=== PATIENT | female | born 1930 | race Caucasian/White ===

== ENCOUNTER 2017-03-23 09:41 | Day surgery (SDC) | payer OTHER, SELFPAY ==
[~2017-03-23 09:41] MED LIST: ACET325; ASCO500 PO; ASPI325; Advil200 M1; Aspir 8181 MG PO; CHOL10002; CLOP75 PO; CONESTTC VAG; CYAN500 PO; CYANOCOBAL-LEV1 EACH PO; ERGO400 PO; FURO40 PO; HYDR1TAB94 PO; Humulin 70-30 V10 ML INJ; INSUL100I; ISOMON30; Isosorbide Mono30 MG PO; LOSA50; METO25 PO; Magnesium200 MG; Metformin HCl500 MG PO; Multiple Vitam1 EAC1 PO; NITR.6SL; Nitrostat0.4 MG SL; OMEP20ER; OXYC1TAB11 PO; POTCHL10ER PO; PRAV20; Pantoprazole So40 MG PO; Pravachol80 MG PO; RANO500T PO; Ranexa1000 MG; TOCO400 PO; TRAM50; VICODIN 5-3001 EACH PO; Vesicare10 MG PO; Vitamin C1000 M1 PO
[2017-03-23 11:13] LABS: Performing Lab VERACYTE; Test Name FNA
[2017-03-26 08:48] LABS: Result SEE PATHOTH RESULTS
== END 2017-03-23 22:45 | disposition home or self-care (01) ==
LOC: US 09:41
PROVIDERS: Family Medicine
PROC: 0GBH3ZX Excision of Right Thyroid Gland Lobe, Percutaneous Approach, Diagnostic (ICD-10-PCS; principal; 2017-03-23)
DX: E04.1 Nontoxic single thyroid nodule (principal)
CPT/HCPCS: 10022; 76942

== ENCOUNTER 2018-03-14 11:41 | Emergency (ER) | payer OTHER, SELFPAY ==
[~2018-03-14] VITALS: Ht 157.5 cm; Wt 90.7 kg
[~2018-03-14 11:41] MED LIST changes: -Isosorbide Mono30 MG PO; +Isosorbide Mono60 MG PO; +METF500C PO; -Metformin HCl500 MG PO; -Vitamin C1000 M1 PO
[2018-03-14 12:29] LABS: BASOPHILS ABSOLUTE AUTO 0.06 K/mm3 (0.00-0.23); BASOPHILS PERCENT AUTO 1 % (0-2); EOSINOPHILS ABSOLUTE AUTO 0.08 K/mm3 (0.00-0.68); EOSINOPHILS PERCENT AUTO 1 % (0-6); Hematocrit 31.6 % (33.0-51.0); Hemoglobin 10.3 g/dL (11.5-16.0); IMMATURE GRAN ABSOLUTE AUTO 0.03 K/mm3 (0.00-0.10); IMMATURE GRAN PERCENT AUTO 0 % (0-1); LYMPHOCYTES ABSOLUTE AUTO 1.27 K/mm3 (0.84-5.20); LYMPHOCYTES PERCENT AUTO 16 % (21-46); MONOCYTES ABSOLUTE AUTO 0.75 K/mm3 (0.16-1.47); MONOCYTES PERCENT AUTO 10 % (4-13); Mean Corpuscular HGB 30.3 pg (26.0-34.0); Mean Corpuscular HGB Conc 32.6 g/dL (31.5-36.5); Mean Corpuscular Volume 93 fL (80-100); Mean Platelet Volume 9.3 fL (9.1-12.4); NEUTROPHILS ABSOLUTE AUTO 5.61 K/mm3 (1.96-9.15); NEUTROPHILS PERCENT AUTO 72 % (41-73); Platelet Count 205 K/mm3 (150-400); RDW Coefficient Variation 13.6 % (11.7-14.2); RDW Standard Deviation 46.2 fL (35.1-46.3)
[2018-03-14 12:41] LABS: International Normalized Ratio 1.06; Prothrombin Time Results 10.9 Sec (9.7-11.5)
[2018-03-14 12:52] LABS: Albumin, Blood 3.4 g/dL (3.4-5.0); Bilirubin, Total 0.9 mg/dL (0.1-1.0); Bun/Creatinine Ratio 24.8 (12.0-20.0); Calcium, Blood 8.7 mg/dL (8.5-10.1); Creatinine, Blood 1.09 mg/dL (0.40-1.00); Globulin, Blood 3.3 g/dL (2.2-4.0); Potassium, Blood 4.2 mmol/L (3.5-5.5); Total Protein, Blood 6.7 g/dL (6.4-8.2)
[2018-03-14] MEDS ORDERED: Norco 10-325 T1 EACH PO (13:29)
== END 2018-03-14 13:39 | disposition home or self-care (01) ==
LOC: ER 11:41
PROVIDERS: Physician Assistant
DX: S51.811A Laceration without foreign body of right forearm, initial encounter (principal); S00.83XA Contusion of other part of head, initial encounter; S00.12XA Contusion of left eyelid and periocular area, initial encounter; S60.222A Contusion of left hand, initial encounter; W22.8XXA Striking against or struck by other objects, initial encounter; E11.9 Type 2 diabetes mellitus without complications; I10 Essential (primary) hypertension; I25.10 Atherosclerotic heart disease of native coronary artery without angina pectoris; Z95.1 Presence of aortocoronary bypass graft; Z88.0 Allergy status to penicillin; Z88.8 Allergy status to other drugs, medicaments and biological substances; Z88.1 Allergy status to other antibiotic agents; Z79.899 Other long term (current) drug therapy; Z79.82 Long term (current) use of aspirin; Z79.4 Long term (current) use of insulin
CPT/HCPCS: 36415; 70450; 70486; 71046; 73130; 80053; 83880; 84484; 85025; 85610; 85730; 93005; 93010; 99284-25

== ENCOUNTER 2018-05-05 15:16 | Inpatient (IN) | payer OTHER ==
[~2018-05-05] VITALS: Ht 157.5 cm; Wt 91.7 kg
--- NOTE | 2018-05-05 05:00 | NUR ---
PT ADMITTED FROM ED AT APPROX 2220 FOR C/O SOB, DIZZINESS AND DYSPNEA. VS WNL. A&O X4. ONE SBA W/FWW TO BATHROOM. REPORTS SOB UPON EXERTION. C/O SOME CHEST PAIN. VOIDING WELL. TELE IN PLACE. PT A-FIB WITH BUNDLE BRANCH BLOCK PER CIRCULAR STUFFER. PULSE OX ON; USING CPAP T/O NIGHT.
[~2018-05-05 15:16] MED LIST changes: +Norco 10-325 T1 EACH PO
[2018-05-05 16:33] LABS: Source, Urine Clean Catch
[2018-05-05 16:40] LABS: Bilirubin, Urine Neg (Neg); Blood, Urine Neg (Neg); Glucose Qualitative, Urine Neg (Neg); Ketones, Urine Neg (Neg); Leukocyte Esterase, Urine Neg (Neg); Nitrite, Urine Neg (Neg); Protein, Urine Neg (Neg); Urobilinogen, Urine NORM (Normal)
[2018-05-05 16:47] LABS: Appearance, Urine Clear (Clear); Color, Urine Yellow (P-Yellow)
[2018-05-05 16:50] LABS: BASOPHILS ABSOLUTE AUTO 0.08 K/mm3 (0.00-0.23); BASOPHILS PERCENT AUTO 1 % (0-2); EOSINOPHILS ABSOLUTE AUTO 0.25 K/mm3 (0.00-0.68); EOSINOPHILS PERCENT AUTO 3 % (0-6); Hematocrit 32.5 % (33.0-51.0); Hemoglobin 10.3 g/dL (11.5-16.0); IMMATURE GRAN ABSOLUTE AUTO 0.04 K/mm3 (0.00-0.10); IMMATURE GRAN PERCENT AUTO 1 % (0-1); LYMPHOCYTES ABSOLUTE AUTO 0.87 K/mm3 (0.84-5.20); LYMPHOCYTES PERCENT AUTO 12 % (21-46); MONOCYTES ABSOLUTE AUTO 0.68 K/mm3 (0.16-1.47); MONOCYTES PERCENT AUTO 9 % (4-13); Mean Corpuscular HGB 29.2 pg (26.0-34.0); Mean Corpuscular HGB Conc 31.7 g/dL (31.5-36.5); Mean Corpuscular Volume 92 fL (80-100); Mean Platelet Volume 8.6 fL (9.1-12.4); NEUTROPHILS PERCENT AUTO 74 % (41-73); Platelet Count 368 K/mm3 (150-400); RDW Coefficient Variation 14.5 % (11.7-14.2); Red Blood Cell Count 3.53 M/mm3 (3.80-5.20); White Blood Cell Count 7.42 K/mm3 (4.00-11.30)
[2018-05-05 17:19] LABS: Albumin, Blood 3.2 g/dL (3.4-5.0); Albumin/Globulin Ratio 0.8 (0.8-1.8); Bun/Creatinine Ratio 27.9 (12.0-20.0); Creatinine, Blood 1.22 mg/dL (0.40-1.00); Globulin, Blood 3.9 g/dL (2.2-4.0); Total Protein, Blood 7.1 g/dL (6.4-8.2); Troponin I 0.071 ng/mL (0.000-0.040)
[2018-05-05] MEDS ORDERED: TOUJEO MAX300 UNIT/1 SC (18:50)
[2018-05-05] MEDS ORDERED: Amlodipine Bes2.5 MG PO (20:15)
[2018-05-05] MEDS ORDERED: OXYB5ER PO (20:16)
[2018-05-05] MEDS ORDERED: METF500C PO (21:50)
[2018-05-05] MEDS ORDERED: INSU100I6 SC (21:55)
[2018-05-05] MEDS ORDERED: LOSA25 PO (21:57)
[2018-05-05] MEDS ORDERED: DULO30 PO (21:57)
[2018-05-05] MEDS ORDERED: HYDR1TAB94 PO (22:30)
[2018-05-06 03:28] LABS: Hematocrit 33.6 % (33.0-51.0); Hemoglobin 10.5 g/dL (11.5-16.0); Mean Corpuscular HGB 29.1 pg (26.0-34.0); Mean Corpuscular HGB Conc 31.3 g/dL (31.5-36.5); Mean Corpuscular Volume 93 fL (80-100); Mean Platelet Volume 8.9 fL (9.1-12.4); Platelet Count 358 K/mm3 (150-400); RDW Coefficient Variation 14.4 % (11.7-14.2); RDW Standard Deviation 49.2 fL (35.1-46.3); Red Blood Cell Count 3.61 M/mm3 (3.80-5.20); White Blood Cell Count 8.88 K/mm3 (4.00-11.30)
[2018-05-06 03:51] LABS: Bun/Creatinine Ratio 26.8 (12.0-20.0); Calcium, Blood 9.1 mg/dL (8.5-10.1); Creatinine, Blood 1.42 mg/dL (0.40-1.00); Potassium, Blood 4.7 mmol/L (3.5-5.5)
--- NOTE | 2018-05-06 17:54 | NUR ---
SUMMARY PATIENT HAS DENIED PAIN THROUGHOUT SHIFT, SOB WITH MOVING SELF IN BED AND WHEN OOB. BIOX GREATER THAN 90% THROUGHOUT SHIFT. PATIENTS FAMILY AT BEDSIDE MOST OF SHIFT. PATIENT IS AWARE SHE WILL BE NPO AFTER MIDNITE
[2018-05-07 05:13] LABS: BASOPHILS ABSOLUTE AUTO 0.08 K/mm3 (0.00-0.23); BASOPHILS PERCENT AUTO 1 % (0-2); EOSINOPHILS PERCENT AUTO 6 % (0-6); Hematocrit 31.7 % (33.0-51.0); Hemoglobin 10.1 g/dL (11.5-16.0); IMMATURE GRAN ABSOLUTE AUTO 0.05 K/mm3 (0.00-0.10); IMMATURE GRAN PERCENT AUTO 1 % (0-1); LYMPHOCYTES ABSOLUTE AUTO 1.29 K/mm3 (0.84-5.20); LYMPHOCYTES PERCENT AUTO 15 % (21-46); MONOCYTES ABSOLUTE AUTO 0.96 K/mm3 (0.16-1.47); MONOCYTES PERCENT AUTO 11 % (4-13); Mean Corpuscular HGB 29.1 pg (26.0-34.0); Mean Corpuscular HGB Conc 31.9 g/dL (31.5-36.5); Mean Corpuscular Volume 91 fL (80-100); Mean Platelet Volume 8.7 fL (9.1-12.4); NEUTROPHILS ABSOLUTE AUTO 5.52 K/mm3 (1.96-9.15); NEUTROPHILS PERCENT AUTO 66 % (41-73); Platelet Count 308 K/mm3 (150-400); RDW Coefficient Variation 14.5 % (11.7-14.2); RDW Standard Deviation 48.3 fL (35.1-46.3); Red Blood Cell Count 3.47 M/mm3 (3.80-5.20)
[2018-05-07 06:05] LABS: Albumin, Blood 3.1 g/dL (3.4-5.0); Anion Gap 7 mmol/L (6-16); Blood Urea Nitrogen 38 mg/dL (8-24); Bun/Creatinine Ratio 25.2 (12.0-20.0); CO2, Blood 25 mmol/L (21-32); Calcium, Blood 9.1 mg/dL (8.5-10.1); Chloride, Blood 101 mmol/L (98-108); Creatinine, Blood 1.51 mg/dL (0.40-1.00); Glomerular Filtration Rate 35 (60-); Glucose, Blood 126 mg/dL (70-99); Phosphorus, Blood 2.8 mg/dL (2.5-4.9); Potassium, Blood 4.7 mmol/L (3.5-5.5); Sodium, Blood 133 mmol/L (136-145)
--- NOTE | 2018-05-07 07:23 | NUR ---
SUMMARY: ADMIT DAY 2 CP ON HOSPITALIST SERVICE. NO ACUTE CHANGES THIS SHIFT. PT REPORTS SOB IMPROVED SINCE ADMIT, VSS, AFEBRILE. CPAP WHILE ASLEEP. MILD DIZZINESS WITH BRP; 1 PERSON ASSIST. NPO AFTER MIDNIGHT IN ANTICIPATION OF DR. SAWYER CONSULT THIS DAY.
[2018-05-07 12:55] LABS: BASOPHILS ABSOLUTE AUTO 0.08 K/mm3 (0.00-0.23); BASOPHILS PERCENT AUTO 1 % (0-2); EOSINOPHILS ABSOLUTE AUTO 0.43 K/mm3 (0.00-0.68); EOSINOPHILS PERCENT AUTO 5 % (0-6); Hematocrit 34.8 % (33.0-51.0); IMMATURE GRAN ABSOLUTE AUTO 0.05 K/mm3 (0.00-0.10); IMMATURE GRAN PERCENT AUTO 1 % (0-1); LYMPHOCYTES ABSOLUTE AUTO 1.41 K/mm3 (0.84-5.20); LYMPHOCYTES PERCENT AUTO 16 % (21-46); MONOCYTES ABSOLUTE AUTO 0.76 K/mm3 (0.16-1.47); MONOCYTES PERCENT AUTO 9 % (4-13); Mean Corpuscular HGB 28.6 pg (26.0-34.0); Mean Corpuscular HGB Conc 31.6 g/dL (31.5-36.5); Mean Corpuscular Volume 90 fL (80-100); Mean Platelet Volume 8.6 fL (9.1-12.4); NEUTROPHILS ABSOLUTE AUTO 5.91 K/mm3 (1.96-9.15); NEUTROPHILS PERCENT AUTO 68 % (41-73); Platelet Count 377 K/mm3 (150-400); RDW Coefficient Variation 14.6 % (11.7-14.2); RDW Standard Deviation 47.9 fL (35.1-46.3); Red Blood Cell Count 3.85 M/mm3 (3.80-5.20); White Blood Cell Count 8.64 K/mm3 (4.00-11.30)
[2018-05-07 13:13] LABS: Bun/Creatinine Ratio 26.7 (12.0-20.0); Calcium, Blood 9.3 mg/dL (8.5-10.1); Creatinine, Blood 1.31 mg/dL (0.40-1.00); Potassium, Blood 4.2 mmol/L (3.5-5.5)
[2018-05-07 13:26] LABS: International Normalized Ratio 1.08; Prothrombin Time Results 11.4 Sec (9.7-11.5)
--- NOTE | 2018-05-07 17:19 | NUR ---
PT HAS BEEN AOX4 AND COOPERATIVE OF ALL CARE. PT STATES SHE IS MORE LIGHT HEADED WHEN SITTING UP IN BED, PT DID WELL TRANSFERING A ONE PERSON TO RESTROOM. PT PLEASANT AND CALLS APPROPRIATELY. WILL CONTINUE TO MONITOR.
--- NOTE | 2018-05-08 06:38 | NUR ---
SHIFT SUMMARY PT SCHEDULED FOR ANGIOGRAM THIS MORNING, UNKNOWN TIME. NPO SINCE MIDNIGHT IN PREP, FLUIDS STARTED AT 0630. PT IS A&O, ABLE TO MAKE NEEDS KNOWN. WORE HER CPAP AT HS. SHE DENIED SOB AT REST, PALPITATIONS, OR CP OVERNIGHT. TELE WAS A-FIB WITH A BBB, OCCASIONALLY PACED IN THE 60S-70S AT TIME OF ASSESSMENT. PT RECEIVED COVERAGE AT HS FOR CB[facility]. WILL CTM UNTIL PASS TO NEXT SHIFT.
--- NOTE | 2018-05-08 07:49 | NUR ---
TRANSFERED CARE TO [facility] @ 9219. VSS. [facility] DID NOT REQUIRE INSULIN COVERAGE. SHE HAS BEEN NPO SINCE [place]. MORNING ASSESSMENT NOT COMPLETED PRIOR TO TRANSFER OF CARE. [facility] RN AWARE.
--- NOTE | 2018-05-08 10:22 | NUR ---
The pt was received from the heart center, sleepy but responsive to verbal stimuli. Drowsy and giving occasionally confused answers, but some normal conversation as well. Son and daughter at the bedside, noted that the pt "isn't quite herself yet". She was given sips of orange juice, blood sugar stable at this time. vital signs stable. Right radial site and right groin site were checked upon arrival with heart staff genetic counselorVELASQUEZ De Paz and at 15 minute intervals since then. No evidence of active bleeding, hematoma, swelling, or pain. Right radial site has TR band and white immobilizer board in place. Distal pulses were checked of hands and feet, and noted palpable. Color, warmth, and capillary refill of toes and fingers are WNL. Right groin site has white square dressing held in place with a large transparent dressing. Palpation of the abdomen and groin around the site without evidence of bleeding or hematoma. Hypoxia on room air noted upon arrival; oxgyen was applied at 2 l/min. Contiuous oxymetry is in place and hypoxia was corrected with the oxygen. The pt is lying flat in bed due to activity restrictions following groin access.
--- NOTE | 2018-05-08 11:04 | NUR ---
No changes to previous assessments of groin and radial access sites. Pt remains awake to verbal stimuli.
--- NOTE | 2018-05-08 12:24 | NUR ---
RIGHT HAND DIGITS ARE COOL TO TOUCH, CAP REFILL IS 4-5 SECONDS. PT DENIES PAIN, NUMBNESS AND TINGLING IN THE HANDS. SPO2 MEASURED ON THE FIRST DIGIT IS 94%. 2 CC AIR SLOWLY REMOVED FROM TR BAND, BUT OOZING NOTED, STOPPED AFTER 1 CC AIR REINSTILLED. WHITE IMMOBLIZER BOARD IS IN PLACE, AND PT IS BEING COMPLIANT WITH NO USE OF THE RIGHT ARM OR HAND. RIGHT GROIN SITE REMAINS UNCHANGED FROM PREVIOUS ASSESSMENTS.
--- NOTE | 2018-05-08 13:22 | NUR ---
1240: FINGERS OF RIGHT HAND ARE PINK, CAP REFILL 3 SECONDS, AND COOL TO TOUCH. SPO2 96% MEASURED ON THE 2ND DIGIT OF THE RIGHT HAND. 1330: 1CC AIR REMOVED FROM THE BAND. FINGERS ARE WARM, PINK, WITH BRISK CAP REFILL. NO BLEEDING, NO BRUISING, NO SWELLING.
--- NOTE | 2018-05-08 14:55 | NUR ---
Right radial site is unchanged; right groin site also stable, no changes noted. 5 cc total of air have been removed from the TR band. White immobilizer board remains in place, and the pt is having no pain/discomfort. HOB elevated 30 degrees. The pt is taking in water and food without difficulty.
--- NOTE | 2018-05-08 17:14 | NUR ---
TR band was removed at 1630, cleansed with chlorohexidine and sterile tegederm dressing applied and the white immobilizer board was replaced. Pt is tired, but has no complaints offered at that time.
--- NOTE | 2018-05-08 18:55 | NUR ---
1740 Noted oozing from the right wrist site. Gentle pressure and elevation of the extremity, and it subsided. Noted small marble directly under the 4 mm slit of access site. Doug Gamboa verified the site and assessed the arm with me. Gauze and coban was applied for 1 hour, after which time the oozing had stopped and it was removed. At 1900 Bedside report to Harry Choudhury and verification of both the groin and radial sites was done, and there has been no bleeding or change to the right radial site assessment. The pt states that she is comfortable.
[2018-05-09 04:03] LABS: Potassium, Blood 4.9 mmol/L (3.5-5.5)
[2018-05-09 04:04] LABS: Bun/Creatinine Ratio 28.9 (12.0-20.0); Creatinine, Blood 1.35 mg/dL (0.40-1.00)
[2018-05-09 04:05] LABS: Calcium, Blood 8.9 mg/dL (8.5-10.1)
--- NOTE | 2018-05-09 06:36 | NUR ---
SHIFT SUMMARY PATIENT PLEASENT AND COOPERATIVE THROUGHOUT THE NIGHT. PATIENT UP TO THE BSC SEVERAL TIMES. PATIENT'S RIGHT WRIST ANGIO SITE CONTINUES TO HAVE A SLIGHT LUMP AT THE INSERTION SITE BUT NO FURTHER SIGNS OF BLEEDING OR HEMATOMA FORMATION. PATIENT'S RIGHT GROIN ACCESS SITE ALSO HAS NO SIGNS OF BLEEDING OR HEMATOMA FORMATION. PATIENT APPEARED TO SLEEP WELL THROUGHOUT THE NIGHT. CONTINUOUS BIOX IN PLACE. PATIENT USED HER CPAP THROUGHOUT THE NIGHT. VITAL SIGNS CHARTED. WILL CONTINUE TO MONITOR PATIENT AND REPORT TO ONCOMING RN.
--- NOTE | 2018-05-09 08:06 | NUR ---
Assumed Care: Assumed care of pt at approx 0700. VSS. In no apparent sign of distress. Pt is A&Ox4. Calls appropriately and repositions self. Pt is compliant with R femoral and R radial activity restrictions. Pt denies any pain or CP at this time. Denies any acute complaints or events this AM. See shift assessment for detailed assessment. Pt is currently resting in bed with call light within reach. Denies any further questions, complaints or requests at this time. Will continue to monitor.
--- NOTE | 2018-05-09 18:46 | NUR ---
Shift Summary No acute changes since initial shift assessment. VSS. In no apparent sign of distress. Pt is A&Ox4. Calls appropriately and repositions self. Denies any pain at this time. No acute events on tele. Attempted to titrate O2 down, but SpO2 did not maintain >92% unless pt was on 2L O2 NC. Plan is to keep pt until follow-up is possible for possible PE per Dr. Mcnulty. Per pt family, pt/pt family was told by Dr. Chen that pt needs to follow-up for possible PE d/t angiogram results. Pt has not demonstrated any acute respiratory distress this shift. Pt is currenlty resting in bed with call light within reach. Denies any further questions, complaints or requests at this time. Will continue to montior until report is given to venkatesh ENG.
[2018-05-10 04:43] LABS: Anion Gap 8 mmol/L (6-16); Blood Urea Nitrogen 41 mg/dL (8-24); Bun/Creatinine Ratio 30.4 (12.0-20.0); CO2, Blood 25 mmol/L (21-32); Chloride, Blood 104 mmol/L (98-108); Creatinine, Blood 1.35 mg/dL (0.40-1.00); Glomerular Filtration Rate 37 (60-); Glucose, Blood 76 mg/dL (70-99); Phosphorus, Blood 2.7 mg/dL (2.5-4.9); Potassium, Blood 4.9 mmol/L (3.5-5.5); Sodium, Blood 137 mmol/L (136-145)
--- NOTE | 2018-05-10 05:54 | NUR ---
SHIFT SUMMARY PT ALERT AND ORIENTED. VS STABLE. PT RESTED MOST OF SHIFT ON CPAP WITH 2L BLEED IN. 02 SATS REMAINED ABOVE 92%. PT COMPLAINED OF PAIN IN HER RIGHT SHOULDER THAT WAS RELIEVED WITH MEDICATION ADMINISTRATION. PT WAS ABLE TO AMBULATE TO [facility] NEEDED TO VOID. RIGHT RADIAL SITE AND RIGHT GROIN SITE UNCHANGED THIS SHIFT. NO OTHER CHANGES SINCE INITIAL ASSESSMENT. WILL CONTINUE TO MONITOR AND REPORT TO ONCOMING RN. CALL LIGHT IN REACH.
--- NOTE | 2018-05-10 12:08 | NUR ---
1100 Pt states that since she has been back in bed after toileting about an hour ago she has had a mild heaviness and ache in her right arm, upper part. She is not sure if she has had this kind of pain before, but states definitely not this admission. Noted that spo2 is 88% on room air. Denies any other pain, dyspnea at rest or discomfort. Arm was assessed: No swelling except for resolving area medial right elbow from IV infiltration just following angiogram. No discoloration of skin, and temperature is warm, and cap refill noted 3 sec. She has her normal mobility of the right arm.Right radial access site is WNL. Oxygen applied. at 2 l/min and spo2 improved to 94%.
--- NOTE | 2018-05-10 12:28 | NUR ---
SPO2 IS 98% on 2 l/min of oxygen. Pt toileted in bathroom, now sitting in a chair and states that her right arm discomfort is resolved.
--- NOTE | 2018-05-10 18:26 | NUR ---
No further complaints of pain. The pt has been ambulatory to the bathroom while wearing oxgyen asymptomatically. Getting OOB also for meals to the chair, other andrew she tends to lie in bed and nap or watch TV. Family at the bedside.
[2018-05-11 04:22] LABS: Anion Gap 6 mmol/L (6-16); Blood Urea Nitrogen 39 mg/dL (8-24); Bun/Creatinine Ratio 29.3 (12.0-20.0); CO2, Blood 26 mmol/L (21-32); Calcium, Blood 8.8 mg/dL (8.5-10.1); Chloride, Blood 102 mmol/L (98-108); Creatinine, Blood 1.33 mg/dL (0.40-1.00); Glomerular Filtration Rate 40 (60-); Glucose, Blood 88 mg/dL (70-99); Phosphorus, Blood 2.7 mg/dL (2.5-4.9); Potassium, Blood 4.7 mmol/L (3.5-5.5); Sodium, Blood 134 mmol/L (136-145)
--- NOTE | 2018-05-11 05:54 | NUR ---
SHIFT SUMMARY PT ALERT AND ORIENTED. VS STABLE. 02 SATS HAVE REMAINED ABOVE 90% ON CPAP WITH 2L BLEED IN. PT USES 2L O2 NC WHILE AWAKE. PT DENIES ANY PAIN THIS SHIFT. PT ABLE TO AMBULATE TO BSC. NO CHANGES SINCE INITIAL ASSESSMENT. WILL CONTINUE TO MONITOR AND REPORT TO ONCOMING RN. CALL LIGHT IN REACH.
[2018-05-11] MEDS ORDERED: Humalog100 UNIT/1 SC (13:23)
[2018-05-11] MEDS ORDERED: Lopressor 50 mg50 MG PO (13:31)
[2018-05-11] MEDS ORDERED: Medi-Meclizine25 MG PO (13:35)
[2018-05-11] MEDS ORDERED: ERGO400 PO (13:36)
[2018-05-11] MEDS ORDERED: INSU100I6 SC (16:49)
[2018-05-11] MEDS ORDERED: NAC600 MG PO (16:57)
--- NOTE | 2018-05-11 19:33 | NUR ---
SHIFT SUMMARY AND DISCHARGE Assumed care of pt at 0700. Report received from Iesha ENG. Pt on 2 LPM NC at beginning of shift. Pt's daughter at bedside for majority of shift. This RN accompanied Dr Mcnulty into room as there were concerns about family behavior interfering with patient care yesterday. Pt titrated to room air with Dr Mcnulty in room. Pt tolerated this well. This RN and Dr Mcnulty spoke to pt and her daughter about risk to benefit regarding performing a chest CT to rule out a pulmonary embolism. Pt and family state that Dr Huffman discussed pt having a chest CT, however this is not reflected in the pt's chart. Risks stated included potential decline of kidney function and increase in fluid overload if fluids were administered to help with contrast clearance. Dr Mcnulty stated low suspicion that pt has a pulmonary embolism. Pt's daughter and patient agreed to address the chest CT when the pt visits Dr Huffman as an outpatient. The daughter added "Let's see how the home oxygen evaluation goes." This RN called Dr Mcnulty to notify her that the home O2 evaluation was in the pt's chart. Dr Mcnulty requested child protective services social worker visits the patient prior to discharge. Per account plannerHortencia, the daughter again brought up the chest CT. This RN checked on patient, who was alone in the room at the time. This RN told the patient that she was going home today. The patient stated "okay" and smiled. When this RN went into the room to ask which pharmacy the pt uses, the daughter was in the room. The daughter stated "So she doesn't get to have oxygen?" and "She's going home even though she is a fall risk?" This RN provided education about the home O2 eval that had been performed and fall prevention. The pt's daughter then stated, "Well, we will need an ambulance to get her home. She can't walk into the parking lot to get into my car". This RN stated the patient would be escorted in a wheelchair to a location where she could be picked up. The daughter stated "But I wouldn't be able to get her into her house." When asked how the pt leaves her home, the daughter stated "Well she doesn't leave home when the weather is like this." This RN called Hortencia from discharge planning to discuss transportation options. Hortencia notified this RN that the pt's daughter stated she would not take the pt home and that she wanted the chest CT to be performed. This RN spoke to the pt and daughter, reiterating the risks and benefit of a chest CT, to which the pt and daughter both stated they wanted this done. Call placed to Dr Mcnulty. New orders given. Chest CT done. Results reviewed with Dr Mcnulty. Dr Mcnulty said pt is okay to go home. This RN clairifed that 1800 lasix was to be given. This RN notified pt and family of CT negative for pulmonary embolism. This RN also discussed fluid overload with the pt and family, discussing diuresis and emphasizing a low salt and low fat diet. After discharge education provided, the daughter agreed that the pt going home was in the pt's best interest. The daughter appeared more comfortable with the pt's discharge. This RN notified pt and family that prescriptions should be available for pickup from [facility] pharmacy. This RN also discussed importance of medication complaince, changing positions slowly (moving from laying down to sitting or standing), daily weights, and possibly toileting schedule after taking lasix in the morning to prevent falls related to urinary urgerncy. Pt departed from unit at 1855, accompanied by Jamal HALE.
== END 2018-05-11 19:23 | disposition home health service (06) | DRG 286 ==
LOC: ER 15:16 → SURS 15:17 → ER 21:59 → SURS 21:59 → PCU 05-08 10:11
PROVIDERS: Internal Medicine; Internal Medicine Cardiovascular Disease; Nurse Practitioner Acute Care; Physician Assistant; ADMIT Family Medicine
PROC: B211YZZ Fluoroscopy of Multiple Coronary Arteries using Other Contrast (ICD-10-PCS; principal; 2018-05-08)
DX: I13.0 Hypertensive heart and chronic kidney disease with heart failure and stage 1 through stage 4 chronic kidney disease, or unspecified chronic kidney disease (principal); J96.01 Acute respiratory failure with hypoxia; I50.33 Acute on chronic diastolic (congestive) heart failure; I25.10 Atherosclerotic heart disease of native coronary artery without angina pectoris; N18.3 Chronic kidney disease, stage 3 (moderate); Z66 Do not resuscitate; I48.2 Chronic atrial fibrillation; G47.33 Obstructive sleep apnea (adult) (pediatric); E11.22 Type 2 diabetes mellitus with diabetic chronic kidney disease; R42 Dizziness and giddiness; K21.9 Gastro-esophageal reflux disease without esophagitis; E78.00 Pure hypercholesterolemia, unspecified; E66.9 Obesity, unspecified; Z68.36 Body mass index [BMI] 36.0-36.9, adult; Z95.1 Presence of aortocoronary bypass graft; Z95.2 Presence of prosthetic heart valve; Z88.0 Allergy status to penicillin; Z88.8 Allergy status to other drugs, medicaments and biological substances; Z79.02 Long term (current) use of antithrombotics/antiplatelets; Z79.82 Long term (current) use of aspirin; Z79.4 Long term (current) use of insulin; Z79.899 Other long term (current) drug therapy
CPT/HCPCS: 36415; 71046; 71260; 80048; 80053; 80069; 81003; 82550; 82947; 83735; 83880; 84145; 84484; 85025; 85027; 85610; 93005; 93010; 93455; 94660; 94761; 94762; 96372; 97162; 97165; 97530; 97535; 99152; 99153; 99285-25; C1769; C1894; J1644; J1650; J1940; J2250; J3010; J7030; J7040; Q9967

== ENCOUNTER → 2018-07-06 | Outpatient (CLI) | payer OTHER ==
[~2018-07-06] MED LIST changes: +Amlodipine Bes2.5 MG PO; +DULO30 PO; +Humalog100 UNIT/1 SC; +INSU100I6 SC; +LOSA25 PO; +Lopressor 50 mg50 MG PO; +Medi-Meclizine25 MG PO; +NAC600 MG PO; +OXYB5ER PO; +TOUJEO MAX300 UNIT/1 SC
[2018-07-06 19:24] LABS: Appearance, Urine Clear (Clear); Bilirubin, Urine Neg (Neg); Blood, Urine Neg (Neg); Color, Urine Yellow (P-Yellow); Glucose Qualitative, Urine Neg (Neg); Ketones, Urine Neg (Neg); Leukocyte Esterase, Urine Neg (Neg); Nitrite, Urine Neg (Neg); Protein, Urine Neg (Neg); Urobilinogen, Urine NORM (Normal)
== END | disposition home or self-care (01) ==
LOC: LAB HH 19:19
PROVIDERS: Family Medicine
DX: E11.42 Type 2 diabetes mellitus with diabetic polyneuropathy (principal)
CPT/HCPCS: 81003

== ENCOUNTER 2018-07-21 09:24 | Inpatient (IN) | payer OTHER ==
[~2018-07-21] VITALS: Ht 157.5 cm; Wt 91.7 kg
[2018-07-21 10:54] LABS: BASOPHILS ABSOLUTE AUTO 0.07 K/mm3 (0.00-0.23); BASOPHILS PERCENT AUTO 1 % (0-2); EOSINOPHILS ABSOLUTE AUTO 0.16 K/mm3 (0.00-0.68); EOSINOPHILS PERCENT AUTO 2 % (0-6); Hemoglobin 11.2 g/dL (11.5-16.0); IMMATURE GRAN ABSOLUTE AUTO 0.08 K/mm3 (0.00-0.10); IMMATURE GRAN PERCENT AUTO 1 % (0-1); LYMPHOCYTES ABSOLUTE AUTO 0.99 K/mm3 (0.84-5.20); LYMPHOCYTES PERCENT AUTO 12 % (21-46); MONOCYTES ABSOLUTE AUTO 0.91 K/mm3 (0.16-1.47); MONOCYTES PERCENT AUTO 11 % (4-13); Mean Corpuscular HGB 29.1 pg (26.0-34.0); Mean Corpuscular HGB Conc 31.1 g/dL (31.5-36.5); Mean Corpuscular Volume 94 fL (80-100); Mean Platelet Volume 8.7 fL (9.1-12.4); NEUTROPHILS ABSOLUTE AUTO 6.33 K/mm3 (1.96-9.15); NEUTROPHILS PERCENT AUTO 74 % (41-73); Platelet Count 250 K/mm3 (150-400); RDW Coefficient Variation 19.6 % (11.7-14.2); RDW Standard Deviation 66.5 fL (35.1-46.3); Red Blood Cell Count 3.85 M/mm3 (3.80-5.20); White Blood Cell Count 8.54 K/mm3 (4.00-11.30)
[2018-07-21 11:21] LABS: Albumin, Blood 3.4 g/dL (3.4-5.0); Albumin/Globulin Ratio 0.9 (0.8-1.8); Bilirubin, Total 0.9 mg/dL (0.1-1.0); Bun/Creatinine Ratio 19.5 (12.0-20.0); Calcium, Blood 9.5 mg/dL (8.5-10.1); Creatinine, Blood 1.23 mg/dL (0.40-1.00); Globulin, Blood 3.6 g/dL (2.2-4.0); Potassium, Blood 4.7 mmol/L (3.5-5.5); Troponin I 0.022 ng/mL (0.000-0.040)
[2018-07-21] MEDS ORDERED: Furosemide40 MG PO ×2 (15:12→15:13)
[2018-07-21] MEDS ORDERED: LOSA25 PO (15:13)
[2018-07-21] MEDS ORDERED: Pravachol80 MG PO (15:14)
[2018-07-21] MEDS ORDERED: TOUJEO SOL300 UNIT/1 SC (15:14)
[2018-07-21] MEDS ORDERED: Lopressor 50 mg50 MG PO (15:16)
[2018-07-21] MEDS ORDERED: Isosorbide Mono60 MG PO (15:17)
[2018-07-21] MEDS ORDERED: POTCHL10ER PO (15:19)
[2018-07-21] MEDS ORDERED: METF500C PO (15:19)
[2018-07-21] MEDS ORDERED: METFORMIN HCL500 MG PO (15:20)
[2018-07-21] MEDS ORDERED: NITR.4SL SL (15:25)
[2018-07-21] MEDS ORDERED: RANO500T PO (15:52)
[2018-07-21] MEDS ORDERED: CLOP75 PO (15:52)
[2018-07-21] MEDS ORDERED: Amlodipine Bes2.5 MG PO (15:53)
[2018-07-21] MEDS ORDERED: ASPI81CH PO (15:53)
[2018-07-21] MEDS ORDERED: OXYB5ER PO (15:54)
[2018-07-21] MEDS ORDERED: NOVOLOG FL100 UNIT/1 SC (16:00)
[2018-07-21] MEDS ORDERED: CENTRUM SILVER1 EAC2 PO (16:02)
--- NOTE | 2018-07-21 18:37 | NUR ---
SHIFT SUMMARY PT A NEW ADMISSION FROM ED THIS EVENING. PT HAS NO COMPLAINTS OF PAIN. SHORTNESS OF BREATH WITH EXERTION. PT ON 2L OXYGEN VIA NC, WHICH IS PT'S BASELINE AT HOME. NO ACUTE DISTRESS AT THIS TIME. PT EATING DINNER. SON AT BEDSIDE. WILL CONTINUE TO MONITOR AND REPORT TO ONCOMING RN.
--- NOTE | 2018-07-22 06:06 | NUR ---
SHIFT SUMMARY PT A/O NO C/O PAIN IN CHEST AREA TO BACK AND MEDICATED PER EMAR. GETS SOB C EXERTION/TALKING. ON 2.5L O2 NC. USING BSC C SBA. TELE SHOWED A FIB@ 76 C BBB PER MANUAL PLATE FILLER AT 2029. SHE WAS ABLE TO SLEEP T/O NIGHT. CALL LIGHT IN REACH.
[2018-07-22 06:32] LABS: BASOPHILS ABSOLUTE AUTO 0.07 K/mm3 (0.00-0.23); BASOPHILS PERCENT AUTO 1 % (0-2); EOSINOPHILS ABSOLUTE AUTO 0.14 K/mm3 (0.00-0.68); EOSINOPHILS PERCENT AUTO 2 % (0-6); Hematocrit 33.5 % (33.0-51.0); Hemoglobin 10.8 g/dL (11.5-16.0); IMMATURE GRAN ABSOLUTE AUTO 0.07 K/mm3 (0.00-0.10); IMMATURE GRAN PERCENT AUTO 1 % (0-1); LYMPHOCYTES ABSOLUTE AUTO 0.93 K/mm3 (0.84-5.20); LYMPHOCYTES PERCENT AUTO 12 % (21-46); MONOCYTES ABSOLUTE AUTO 0.86 K/mm3 (0.16-1.47); MONOCYTES PERCENT AUTO 11 % (4-13); Mean Corpuscular HGB 29.4 pg (26.0-34.0); Mean Corpuscular HGB Conc 32.2 g/dL (31.5-36.5); Mean Platelet Volume 8.4 fL (9.1-12.4); NEUTROPHILS PERCENT AUTO 74 % (41-73); Platelet Count 225 K/mm3 (150-400); RDW Coefficient Variation 19.3 % (11.7-14.2); RDW Standard Deviation 65.1 fL (35.1-46.3); Red Blood Cell Count 3.67 M/mm3 (3.80-5.20); White Blood Cell Count 7.87 K/mm3 (4.00-11.30)
[2018-07-22 06:47] LABS: Bun/Creatinine Ratio 20.2 (12.0-20.0); Calcium, Blood 9.2 mg/dL (8.5-10.1); Creatinine, Blood 1.24 mg/dL (0.40-1.00); Potassium, Blood 4.7 mmol/L (3.5-5.5)
[2018-07-22 07:00] LABS: Mean Corpuscular Volume 91 fL (80-100)
--- NOTE | 2018-07-22 16:57 | NUR ---
ALERT. ORIENTED. ADVISED TO TAKE SLOW BREATHS THRU NOSE AND OUT THRU MOUTH. T/O DAY HAS BEEN TAKING SMALL FAST BREATHS. DID C/O ABD PAIN AND POSSIBLE CONSTIPATION. HAD 2 B.M'S. HAS DENIED ABD PAIN AT THIS TIME. ONE PERSON ASSIST TO BSC. FORGETFUL. TELE ON SHOWING AFIB. ON OXYGEN AND WHEN BREATHING SLOWLY SAT'S MID 90'S. NO ACUTE CHANGES. WCTM.
[2018-07-23 04:51] LABS: Hematocrit 34.8 % (33.0-51.0); Hemoglobin 10.8 g/dL (11.5-16.0)
[2018-07-23 05:12] LABS: Bun/Creatinine Ratio 19.2 (12.0-20.0); Calcium, Blood 8.8 mg/dL (8.5-10.1); Creatinine, Blood 1.25 mg/dL (0.40-1.00); Potassium, Blood 4.9 mmol/L (3.5-5.5)
--- NOTE | 2018-07-23 07:32 | NUR ---
SHIFT SUMMARY PT IS AN 88 Y/O FEMALE, ADMITTED FOR RESPIRATORY FAILURE. SHE IS A&O X 3, AND A 1PA IN THE ROOM. THE PT DENIED ANY COMPLAINTS OF ACUTE PAIN, NAUSEA OR SOB. THE PT DID HAVE AN APPARENT BLOODY NOSE DURING THE MORNING, THOUGH SHE DID NOT REPORT IT TO STAFF MEMBERS. VITALS REMAINED STABLE. NO OTHER ACUTE CHANGES IN PT CONDITION. REPORT GIVEN TO ONCOMING NURSE.
--- NOTE | 2018-07-23 18:39 | NUR ---
SHIFT SUMMARY PT UP IN CHAIR ALL MORNING AND THEN BACK TO BED AFTER LUNCH. DAUGHTER AT BEDSIDE MOST OF MORNING AND THEN JUST POPPED IN AND OUT FOR AFTERNOON. CONTINUES TO BREATHE IN SHALLOW RESP. INCENTIVE SPIROMETER INSTRUCTED ON AND ENCOURAGED. CONTINUOUS OXIMETRY ON AND OCC CHIMED ESPECIALLY WHEN SLEEPLING. RT INCREASED O2 TO 3L/M WITH CPAP. 1 PERSON ASSIST TO BATHROOM USING FWW.
[2018-07-24 04:43] LABS: PCO2 Arterial 31.9 mmHg (35-45); PO2 Arterial 76.1 mmHg (80-100); pH Blood Arterial 7.49 (7.35-7.45)
[2018-07-24 05:01] LABS: Bun/Creatinine Ratio 20.5 (12.0-20.0); Calcium, Blood 8.7 mg/dL (8.5-10.1); Creatinine, Blood 1.51 mg/dL (0.40-1.00); Potassium, Blood 5.2 mmol/L (3.5-5.5)
--- NOTE | 2018-07-24 06:49 | NUR ---
SHIFT SUMMARY PT IS AN 88 Y/O FEMALE, ADMITTED FOR RESPIRATORY FAILURE. SHE IS A&O X 3, WITH SOME FORGETFULNESS/OCC CONFUSION DURING THE NIGHT, AND A SBA IN THE ROOM. PT REPORTED INCREASED DYSPNEA WITH EXERTION AND AMBULATION. PT ALSO REPORTED SUDDEN NAUSEA THIS AM WHEN MOVING BETWEEN THE BED AND THE BSC, BUT DENIED THE NEED FOR NAUSEA MEDS. NO COMPLAINTS OF PAIN. PT SLEPT WELL DURING THE NIGHT. NO OTHER ACUTE CHANGES IN PT CONDITION NOTED. WILL CONTINUE TO MONITOR AND TREAT PER EMAR.
--- NOTE | 2018-07-24 18:00 | NUR ---
DISCHARGE INSTRUCTIONS COMPLETED AND DISCUSSED WITH PT EXPRESSING UNDERSTANDING. DAUGHTER AT BEDSIDE WELL AND LISTEN TO DISCHARGE INFORMATION. SPOKE WITH DAUGHTER INDIVIDUALLY ABOUT PTS ANXIETY ABOUT GOING HOME AND NOT BEING SUCCESSFUL AND ENCOURAGED HER TO HAVE PEOPLE NEARBY IF POSSIBLE TO ASSIST HER. TO CUR[facility] VIA W/C.
== END 2018-07-24 17:48 | disposition home or self-care (01) | DRG 291 ==
LOC: ER 09:24 → MEDS 12:54 → PCU 12:54 → MEDS 16:05 → ENPENDDIS 07-24 15:45 → MEDS 07-24 17:48
PROVIDERS: Emergency Medicine; Hospitalist; ADMIT Internal Medicine
DX: I13.0 Hypertensive heart and chronic kidney disease with heart failure and stage 1 through stage 4 chronic kidney disease, or unspecified chronic kidney disease (principal); J96.21 Acute and chronic respiratory failure with hypoxia; I50.33 Acute on chronic diastolic (congestive) heart failure; E87.1 Hypo-osmolality and hyponatremia; G47.33 Obstructive sleep apnea (adult) (pediatric); N18.3 Chronic kidney disease, stage 3 (moderate); E11.22 Type 2 diabetes mellitus with diabetic chronic kidney disease; J44.9 Chronic obstructive pulmonary disease, unspecified; Z99.81 Dependence on supplemental oxygen; Z95.1 Presence of aortocoronary bypass graft; Z95.0 Presence of cardiac pacemaker; Z68.35 Body mass index [BMI] 35.0-35.9, adult; I25.10 Atherosclerotic heart disease of native coronary artery without angina pectoris; Z95.4 Presence of other heart-valve replacement; I48.91 Unspecified atrial fibrillation; K21.9 Gastro-esophageal reflux disease without esophagitis; Z66 Do not resuscitate; E66.01 Morbid (severe) obesity due to excess calories
CPT/HCPCS: 36415; 36600; 71046; 80048; 80053; 82803; 82947; 83690; 83880; 84484; 85014; 85018; 85025; 93005; 93010; 94762; 96374; 99285-25; J1650; J1940